=== PATIENT | female | born 1995 | race Two or more races ===

== ENCOUNTER 2017-10-16 19:45 | Day surgery (SDC) | payer OTHER ==
[~2017-10-16] VITALS: Ht 157.5 cm; Wt 88.2 kg
[2017-10-16] MEDS ORDERED: MAALOX/HYOSCYAMINE/LIDOCAINE 45 ML BTL PO ONE (20:30)
[2017-10-16 20:35] LABS: BASOPHILS # (AUTO) 0.04 x10^3/uL (0-0.3); BASOPHILS % (AUTO) 1 % (0-1); EOSINOPHILS # (AUTO) 0.23 x10^3/uL (0-0.8); EOSINOPHILS % (AUTO) 3 % (1-7); LYMPHOCYTES # (AUTO) 1.95 x10^3/uL (1-6.1); LYMPHOCYTES % (AUTO) 23 % (22-44); MD NO; MEAN CORPUSCULAR HEMOGLOBIN 25.3 pg (27.0-34.8); MEAN CORPUSCULAR HGB CONC 32.4 g/dL (32.4-35.8); MEAN PLATELET VOLUME 8.3 fL (7.4-10.4); MONOCYTES # (AUTO) 0.91 x10^3/uL (0-1.4); MONOCYTES % (AUTO) 11 % (2-9); NEUTROPHILS # (AUTO) 5.24 x10^3/uL (1.8-8.0); NEUTROPHILS % (AUTO) 63 % (42-75); PLATELET COUNT 369 x10^3/uL (130-400); RED BLOOD COUNT 4.62 x10^6/uL (3.82-5.3); RED CELL DISTRIBUTION WIDTH 17.9 % (9.6-15.2)
[2017-10-16] MEDS ORDERED: SERT100T PO (20:37)
[2017-10-16] MEDS ORDERED: BIRTH CONTROL PO (20:37)
[2017-10-16] MEDS ORDERED: MAALOX/HYOSCYAMINE/LIDOCAINE 45 ML BTL ONE (20:40)
[2017-10-16 20:46] LABS: CHLORIDE 108 mmol/L (98-107)
[2017-10-16 20:47] LABS: ALANINE AMINOTRANSFERASE 187 U/L (12-78); ALBUMIN 2.8 g/dL (3.4-5.0); ANION GAP 8 mmol/L (5-15); CALCIUM 8.5 mg/dL (8.5-10.1); CREATININE 0.68 mg/dL (0.55-1.02)
[2017-10-16 20:51] LABS: ALKALINE PHOSPHATASE 106 U/L (45-117); BILIRUBIN,TOTAL 0.7 mg/dL (0.2-1.0); TOTAL PROTEIN 7.7 g/dL (6.4-8.2)
[2017-10-16] MEDS ORDERED: SODIUM CHLORIDE 0.9% 1,000 ML IV ONE (22:38)
[2017-10-16] MEDS ORDERED: MORPHINE SULFATE 4 MG/ML, 1ML IVPush PRN (23:00)
[2017-10-16] MEDS ORDERED: ONDANSETRON 2MG/ML, 2ML IVPush PRN (23:00)
[2017-10-16 23:05] VITALS: BP 104/65
[2017-10-16 23:11] VITALS: BP 104/64
[2017-10-17 02:07] VITALS: BP 101/56
[2017-10-17] MEDS ORDERED: BUPIVACAINE/PF 0.5% ONE (06:45)
[2017-10-17] MEDS ORDERED: MIDAZOLAM 1 MG/ML, 2ML ONE (07:06)
[2017-10-17] MEDS ORDERED: FENTANYL PF 100 MCG/2ML ONE ×2 (07:06→08:30)
[2017-10-17] MEDS ORDERED: PROPOFOL 10 MG/ML, 20ML ONE (07:07)
[2017-10-17] MEDS ORDERED: ROCURONIUM 10 MG/ML,10ML ONE ×2 (07:10)
[2017-10-17] MEDS ORDERED: KETOROLAC 30 MG/1 ML ONE ×2 (07:30→08:01)
[2017-10-17] MEDS ORDERED: CEFAZOLIN 1,000 MG ONE (07:30)
[2017-10-17] MEDS ORDERED: CEFOTETAN PMX 2GM/50ML 50 ML ONE (07:43)
[2017-10-17] MEDS ORDERED: ONDANSETRON 2MG/ML, 2ML ONE ×2 (07:48→08:01)
[2017-10-17] MEDS ORDERED: DEXAMETHASONE 4 MG/ML, 1ML ONE (08:01)
[2017-10-17] MEDS ORDERED: GLYCOPYRROLATE 0.2MG/1ML, 5ML ONE (08:04)
[2017-10-17] MEDS ORDERED: NEOSTIGMINE 1 MG/ML, 10ML ONE (08:04)
[2017-10-17] MEDS ORDERED: ACETAMINOPHEN 650 MG/20.3 ML UDC ONE (08:30)
[2017-10-17] MEDS ORDERED: OXYcodone 5 MG/5 ML ORAL.SOL UDC ONE (08:30)
[2017-10-17] MEDS ORDERED: OXYcodone 5 MG/5 ML ORAL.SOL UDC PO PRN ×2 (08:30→10:00)
[2017-10-17] MEDS ORDERED: MEPERIDINE/PF 25MG/0.5ML IVPush PRN (08:30)
[2017-10-17] MEDS ORDERED: ACETAMINOPHEN 325 MG TABLET PO PRN (08:30)
[2017-10-17] MEDS ORDERED: PROMETHAZINE 12.5 MG SUPP PR PRN (08:30)
[2017-10-17] MEDS ORDERED: HYDROmorphone 1 MG/ML, 1ML IV PRN (08:30)
[2017-10-17] MEDS: FENTANYL PF 100 MCG/2ML IV PRN ×2 (08:37→08:45)
[2017-10-17] MEDS ORDERED: HYDROmorphone 2 MG/ML, 1ML ONE (08:47)
[2017-10-17 09:35] VITALS: BP 105/64
[2017-10-17 13:31] VITALS: BP 96/60
[2017-10-17] MEDS ORDERED: OXYC-302 PO (14:44)
[2017-10-17 15:41] VITALS: BP 108/65
== END 2017-10-17 15:45 | disposition home or self-care (01) ==
LOC: ED 21:59 → EDIP 22:41 → UNDOADMIN 22:41 → EDIP 23:04 → 4NOR 23:04 → SDC 10-17 08:20 → UNDODISIN 10-17 15:45
PROVIDERS: ATTEND Surgery
DX: K80.10 Calculus of gallbladder with chronic cholecystitis without obstruction (principal)
CPT/HCPCS: 36415; 47562; 76700; 80053; 83690; 84703; 85025; 88304; 93005; J0690; J1100; J1885; J2250; J2405; J2704; J2710; J3010; J3490; J7030; S0074

== ENCOUNTER 2017-10-18 22:33 | Emergency (ER) | payer OTHER ==
[~2017-10-18] VITALS: Ht 157.5 cm; Wt 91.6 kg
[~2017-10-18 22:33] MED LIST: BIRTH CONTROL PO; OXYC-302 PO; SERT100T PO
[2017-10-18] MEDS ORDERED: SODIUM CHLORIDE 0.9% 1,000ML IVBOLUS ONE (23:30)
[2017-10-18] MEDS ORDERED: SODIUM CHLORIDE FLUSH 10ML SYR IVF ONE (23:30)
[2017-10-18] MEDS ORDERED: ONDANSETRON 2MG/ML, 2ML IVPush ONE (23:30)
[2017-10-18] MEDS ORDERED: HYDROmorphone 2 MG/ML, 1ML IVPush PRN (23:30)
[2017-10-18] MEDS ORDERED: ONDANSETRON 2MG/ML, 2ML ONE (23:40)
[2017-10-18] MEDS ORDERED: HYDROmorphone 2 MG/ML, 1ML ONE (23:40)
[2017-10-18 23:51] LABS: BASOPHILS # (AUTO) 0.05 x10^3/uL (0-0.3); BASOPHILS % (AUTO) 1 % (0-1); EOSINOPHILS # (AUTO) 0.27 x10^3/uL (0-0.8); EOSINOPHILS % (AUTO) 3 % (1-7); LYMPHOCYTES # (AUTO) 2.34 x10^3/uL (1-6.1); LYMPHOCYTES % (AUTO) 22 % (22-44); MD NO; MEAN CORPUSCULAR HEMOGLOBIN 25.6 pg (27.0-34.8); MEAN CORPUSCULAR VOLUME 77.5 fL (80-100); MEAN PLATELET VOLUME 8.4 fL (7.4-10.4); MONOCYTES # (AUTO) 1.13 x10^3/uL (0-1.4); MONOCYTES % (AUTO) 11 % (2-9); NEUTROPHILS # (AUTO) 6.97 x10^3/uL (1.8-8.0); NEUTROPHILS % (AUTO) 65 % (42-75); PLATELET COUNT 350 x10^3/uL (130-400); RED BLOOD COUNT 4.12 x10^6/uL (3.82-5.3); RED CELL DISTRIBUTION WIDTH 18.6 % (9.6-15.2)
[2017-10-19 00:03] LABS: ALANINE AMINOTRANSFERASE 156 U/L (12-78); ALBUMIN 2.6 g/dL (3.4-5.0); ANION GAP 6 mmol/L (5-15); CALCIUM 8.1 mg/dL (8.5-10.1); CHLORIDE 105 mmol/L (98-107)
[2017-10-19 00:09] LABS: ALKALINE PHOSPHATASE 102 U/L (45-117); BILIRUBIN,TOTAL 0.3 mg/dL (0.2-1.0); CREATININE 0.81 mg/dL (0.55-1.02); TOTAL PROTEIN 7.2 g/dL (6.4-8.2)
[2017-10-19 00:35] VITALS: BP 118/76
== END 2017-10-19 01:17 | disposition home or self-care (01) ==
LOC: ED 23:02
DX: G89.18 Other acute postprocedural pain (principal); R10.31 Right lower quadrant pain; Z90.49 Acquired absence of other specified parts of digestive tract
CPT/HCPCS: 36415; 71046; 80053; 83690; 84703; 85025; 93005; 96361; 96374; 96375; 99285; J1170; J2405; J7030

== ENCOUNTER 2018-10-31 15:13 | Emergency (ER) | payer SELFPAY ==
[~2018-10-31] VITALS: Ht 157.5 cm; Wt 79.8 kg
[2018-10-31 15:43] VITALS: BP 111/73
[2018-10-31] MEDS ORDERED: ONDANSETRON ODT 4 MG ONE (16:02)
[2018-10-31] MEDS ORDERED: ONDANSETRON ODT 4 MG PO ONE (16:30)
--- NOTE | 2018-10-31 17:04 | NUR ---
Patient/Caregiver given discharge instructions and they have confirmed that they understand the instructions. Patient ambulatory with steady gait.
== END 2018-10-31 17:07 | disposition home or self-care (01) ==
LOC: ED 16:56
DX: R42 Dizziness and giddiness (principal); R11.0 Nausea; M54.2 Cervicalgia
CPT/HCPCS: 70450; 99284; Q0162